=== PATIENT | female | born 1935 | race Caucasian/White ===

== ENCOUNTER 2019-08-22 09:08 | Outpatient (CLI) | payer MEDICARE, SELFPAY ==
[2019-08-22 09:53] LABS: Alanine Aminotransferase 15 U/L (4-35); Albumin Level 4.1 g/dL (3.5-5.1); Alkaline Phosphatase 52 U/L (38-126); Aspartate Amino Transferase 25 U/L (14-36); Bilirubin,Total 0.5 mg/dL (0.2-1.3); Blood Urea Nitrogen 17 mg/dL (7-17); Calcium 9.3 mg/dL (8.4-10.2); Carbon Dioxide 28 mmol/L (22-30); Chloride 102 mmol/L (98-107); Estimated Glomerular Filt Rate > 60; Glucose 96 mg/dL (65-105); Sodium 140 mmol/L (137-145)
[2019-08-22 10:12] LABS: Hemoglobin A1C 5.4 % (<5.7)
== END 2019-08-22 09:09 | disposition home or self-care (01) ==
PROVIDERS: PCP Internal Medicine; Visit Provider Internal Medicine
DX: R73.9 Hyperglycemia, unspecified (principal)
CPT/HCPCS: 36415; 80053; 83036

== ENCOUNTER 2019-08-27 11:24 | Outpatient (CLI) | payer MEDICARE, SELFPAY ==
--- NOTE | ~2019-08-27 | XR_ITS ---
EXAMINATION: XR chest 2V EXAM DATE: 08/27/2019 11:42 INDICATION: Cough. TECHNIQUE: Frontal and lateral projections of the chest obtained and reviewed. Comparison is made to prior examination from 04/05/2008. FINDINGS: Scattered lung calcifications, granulomata. The lungs are otherwise clear. There are no p leural effusions. Heart is upper limits of normal in size. There is no pneumothorax suspected. Moder ate chronic hyperinflation. There is tortuosity of the aorta. Mild to moderate thoracic spondylosis . IMPRESSION: Chronic thoracic findings as above. Reviewed, dictated and finalized at location B. RMATION DEVELOPER
== END 2019-08-27 11:25 | disposition home or self-care (01) ==
LOC: ANHIMG 11:31
PROVIDERS: PCP Internal Medicine; Visit Provider Internal Medicine
DX: R05 Cough (principal); R91.8 Other nonspecific abnormal finding of lung field
CPT/HCPCS: 71046

== ENCOUNTER 2019-09-17 08:24 | Outpatient (CLI) | payer MEDICARE, SELFPAY ==
--- NOTE | ~2019-09-17 | CT_ITS ---
EXAMINATION: CT abdomen pelvis wo/w con DATE: 09/17/2019 09:07 INDICATION: Abnormal weight loss. Splenic nodule. TECHNIQUE: Computed tomography (CT) of the abdomen and pelvis was performed without and with 100 mL O mnipaque-350 intravenous contrast is a multi phase liver mass protocol. Automated exposure control an d iterative reconstruction technique were employed. The dose-length product was 830.54 mGy-cm. COMPARISON: CT dated 09/28/2012 and 04/17/2013 FINDINGS: Small calcified right lower lobe nodule consistent with old granulomatous disease. Mosaic attenuation in the lower lungs consistent with subsegmental air trapping related to small airway disease. Heart size is normal. Atherosclerotic coronary artery calcifications. No pericardial or pleural effusion. 6 mm low-attenuation nonenhancing cyst in the right hepatic lobe. Gallbladder, bilateral adrenal gland s are normal. No significant interval change since 2012 in a 10 mm peripherally hyperenhancing mass w ith central decreased attenuation at the tail of the pancreas. Again seen are numerous hypoenhancing masses throughout the spleen and a couple small accessory splenules along the posterior margin of the spleen. There are few 8 mm or smaller bilateral renal cysts which can be seen on prior CT as well as the intervening lumbar spine MR. Rim calcified splenic artery aneurysms at the maria teresa measuring 4 mm a nd 8 mm diameters. Normal short appendix versus appendiceal stump without surrounding inflammatory ch tali to suggest acute appendicitis. A few scattered colonic diverticula without adjacent inflammatory change to suggest diverticulitis. Small bowel is normal with no obstruction. Bilateral adnexal cysts measuring 1.7 cm on the right and 3.3 cm on the left. 4.8 x 3.8 cm heterogeneous enhancing subserosa l versus pedunculated uterine fibroid along the right side of the uterine fundus. There are several a dditional calcified degenerated uterine fibroids. Bladder is normal. No free intraperitoneal gas or f luid. No pathologically enlarged abdominal or pelvic lymphadenopathy. Moderate lower thoracic and upp er lumbar spondylosis and severe lower lumbar spondylosis. IMPRESSION: 1. Innumerable hypoenhancing lesions in the spleen and accessory spleens which have been present sinc e 2012 most likely granulomatous disease such as infection or sarcoidosis. 2. No significant interval change since 2012 in a 10 mm hyperenhancing, centrally low attenuation mas s at the tail of the pancreas. Differential would include additional granulomatous disease within an additional accessory spleen within or along side the tail of the pancreas or less likely a neuroendoc rine tumor of the pancreas. 3. Fibroid uterus end couple simple appearing bilateral adnexal cysts. Reviewed, dictated and finalized at location A. ER DEPOSIT OPERATOR IMPRESSION: 1. Innumerable hypoenhancing lesions in the spleen and accessory spleens which have been present since 2012 most likely granulomatous disease such as infectio n or sarcoidosis. 2. No significant interval change since 2012 in a 10 mm hyperenhancing, central ly low attenuation mass at the tail of the pancreas. Differential would include additional granulomatous disease within an additional accessory spleen within or along side the tail of the pancreas or less likely a neuroendocrine tumor of the pancreas. 3. Fibroid uterus end couple simple appearing bilateral adnexal cysts.
== END 2019-09-17 08:25 | disposition home or self-care (01) ==
LOC: ANHIMG 08:25
PROVIDERS: PCP Internal Medicine; Visit Provider Internal Medicine
DX: R63.4 Abnormal weight loss (principal); D73.9 Disease of spleen, unspecified; D25.9 Leiomyoma of uterus, unspecified
CPT/HCPCS: 74178; Q9967

== ENCOUNTER 2020-08-18 13:39 | Outpatient (CLI) | payer MEDICARE, SELFPAY ==
[2020-08-18 15:14] LABS: Basophils Percent Auto 0.3 % (0.2-1.2); Eosinophils Absolute Auto 0.1 K/mm3 (0-0.3); Eosinophils Percent Auto 1.5 % (0-4.4); Hematocrit 44.8 % (37.0-47.0); Hemoglobin 14.4 g/dL (12.0-15.0); Immature Granulocyte Absolute 0.01 K/mm3 (0.00-0.031); Immature Granulocyte Percent A 0.1 % (0-0.5); Lymphocytes Absolute Auto 1.69 K/mm3 (0.9-3.2); Lymphocytes Percent Auto 24.6 % (18.3-44.2); Mean Corpuscular HGB Conc 32.1 g/dl (32-36); Mean Corpuscular Hemoglobin 28.6 pg (26-34); Mean Corpuscular Volume 89.1 fl (80-100); Mean Platelet Volume 9.8 fl (7.4-10.4); Monocytes Absolute Auto 0.4 K/mm3 (0.1-0.6); Monocytes Percent Auto 5.8 % (2.6-8.5); Neutrophils Absolute Auto 4.6 K/mm3 (1.3-6.7); Neutrophils Percent Auto 67.7 % (45.5-73.1); Platelet Count Result 159 k/mm3 (150-375); Red Blood Count 5.03 M/mm3 (4.2-5.4); Red Cell Distribution Width 13.2 % (11.5-14.5); White Blood Count 6.9 K/mm3 (4.5-10.0)
[2020-08-18 15:25] LABS: Alanine Aminotransferase 13 U/L (4-35); Albumin Level 4.5 g/dL (3.5-5.1); Alkaline Phosphatase 58 U/L (38-126); Anion Gap 4 mmol/L (8-16); Aspartate Amino Transferase 28 U/L (14-36); Bilirubin,Total 0.5 mg/dL (0.2-1.3); Blood Urea Nitrogen 16 mg/dL (7-17); Calcium 9.8 mg/dL (8.4-10.2); Carbon Dioxide 31 mmol/L (22-30); Chloride 106 mmol/L (98-107); Cholesterol 214 mg/dL (0-200); Estimated Glomerular Filt Rate > 60; Glucose 83 mg/dL (65-105); HDL Direct 90 mg/dL; Potassium 4.2 mmol/L (3.4-5.0); Sodium 141 mmol/L (137-145); Triglycerides 110 mg/dL (<150)
[2020-08-18 15:36] LABS: LDL Cholesterol Direct 103 mg/dL
[2020-08-18 16:31] LABS: Folic Acid > 20.0 ng/mL (2.76->20)
[2020-08-18 16:37] LABS: Free T4 Free Thyroxine 0.93 ng/mL (0.78-2.19)
== END 2020-08-18 13:40 | disposition home or self-care (01) ==
LOC: ANHLAB 13:43
PROVIDERS: PCP Internal Medicine; Visit Provider Internal Medicine
DX: R53.83 Other fatigue (principal); E03.9 Hypothyroidism, unspecified; R73.9 Hyperglycemia, unspecified; E78.00 Pure hypercholesterolemia, unspecified
CPT/HCPCS: 36415; 80053; 80061; 82607; 82746; 84439; 84443; 85025

== ENCOUNTER → 2020-10-31 01:41 | Outpatient (CLI) | payer MEDICARE, SELFPAY ==
[2020-10-31 19:39] LABS: SARS-CoV-2 RNA PCR Negative
== END ==
PROVIDERS: PCP Internal Medicine; Visit Provider Orthopaedic Surgery
DX: Z01.812 Encounter for preprocedural laboratory examination (principal); Z20.822 Contact with and (suspected) exposure to COVID-19
CPT/HCPCS: C9803; U0003; U0005

== ENCOUNTER 2020-10-31 07:56 | Outpatient (CLI) | payer MEDICARE, SELFPAY ==
--- NOTE | 2020-10-31 08:08 | ECG_ITS ---
Measurements Intervals [place] Rate: 78 P: 70 MS: 170 QRS: 23 QRSD: 89 T: 36 QT: 355 QTc: 405 Interpretive Statements SINUS RHYTHM POSSIBLE LEFT ATRIAL ENLARGEMENT CANNOT RULE OUT SEPTAL INFARCT, AGE INDETERMINATE BASELINE ARTIFACT- I, II, III, AVR, AVL, AVF, V1-V6 ABNORMAL ECG Electronically Signed On 10-31-2020 8:39:49 CDT by Juanjose Timmons D.O.
== END 2020-10-31 07:57 | disposition home or self-care (01) ==
LOC: ANHSURGERY 08:01
PROVIDERS: PCP Internal Medicine; Visit Provider Orthopaedic Surgery
DX: I10 Essential (primary) hypertension (principal); Z01.818 Encounter for other preprocedural examination; R94.31 Abnormal electrocardiogram [ECG] [EKG]
CPT/HCPCS: 93005; C9803; U0003; U0005

== ENCOUNTER 2020-11-03 01:10 | Day surgery (SDC) | payer MEDICARE, SELFPAY ==
[2020-10-23 12:16] VITALS: BMI 28.8
[2020-11-03] VITALS (10 sets, daily range): BP systolic 134–169; BP diastolic 67–83; PULSE 60–80; RESP 14–18; TEMP 36.3; O2SAT 98–100
--- NOTE | 2020-11-03 08:35 | WPDANESEPPF ---
Anes - Initial Pre Proc Eval Procedure: Operation Date: 11/03/20 10:30 Proposed Procedures p Right Knee Arthroscopic Peripatellar Debridement - Shabbir Barnes MD Date/Time: 11/03/20 08:35 Surgeon: Shabbir Barnes MD Pre Op Diagnosis: right knee peripatellar pain Patient Data Age: 85 Gender: F Height: 1.61 m Weight: 75 kg Allergies Allergy/AdvReac Type Severity Reaction Status Date / Time Penicillins Allergy Mild Rash Verified 11/03/20 08:50 Home Medications Medication Instructions Recorded Confirmed Type acetaminophen 650 mg 650 mg PO Q12H 08/27/19 11/03/20 History tablet,extended release aspirin 325 mg tablet 325 mg PO DAILY 08/27/19 11/03/20 History gabapentin 400 mg capsule 400 mg PO BID #60 cap 08/05/20 11/03/20 Rx lisinopril 10 mg tablet 10 mg PO DAILY #90 tablet 09/14/20 11/03/20 Rx levothyroxine 50 mcg PO QAM 10/23/20 11/03/20 History multivitamin 1 tablet PO DAILY 10/23/20 11/03/20 History ECG: Date of Service: 10/31/20 Procedure(s): CA 12 lead EKG Accession Number(s): [id number] cc: ~ Measurements Intervals [place] Rate: 78 P: 70 WA: 170 QRS: 23 QRSD: 89 T: 36 QT: 355 QTc: 405 Interpretive Statements SINUS RHYTHM POSSIBLE LEFT ATRIAL ENLARGEMENT CANNOT RULE OUT SEPTAL INFARCT, AGE INDETERMINATE BASELINE ARTIFACT- I, II, III, AVR, AVL, AVF, V1-V6 ABNORMAL ECG Electronically Signed On 10-31-2020 8:39:49 CDT by Juanjose Timmons D.O. 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 Family History Family History Father Family history of Parkinson's disease Patient's father is Mother Patient's mother is Sibling Patient's sister is Social History Social History Smoking status: Never smoker Second hand tobacco smoke exposure: No Alcohol intake: never Substance use: never Substance use type: does not use Living arrangements: alone Spiritual care concerns: No Anes - Eval Final PreProcedure Day of Procedure 11/03/20 08:35 Patient weight: overweight Heart: regular rate and rhythm Lungs: clear to auscultation and normal air movement Airway: Mallampati scale class II Neurological: alert and oriented Last oral intake: >/= 8 hours ASA classification: III Emergent: no Anesthetic plan: proceed Anesthesia type and monitoring: general LMA Informed Consent: The patient's anesthetic plan and its attendant risks and benefits were discussed with the patient/family/POA. Questions were solicited and answers provided to the satisfaction of the patient/family/POA.
[2020-11-03] MEDS: ACETAMINOPHEN 500 MG TABLET 1000 MG PO (09:08)
[2020-11-03] MEDS: LACTATED RINGERS 1,000 ML 30 ML IV CONT ×2 (09:15→11:36)
--- NOTE | 2020-11-03 09:44 | WPDHPUPDATE1 ---
History and Physical Update Update Date/Time: 11/03/20 09:44 History and Physical has been reviewed, including an updated exam of the patient. There are NO changes in the patient's condition. Risks, benefits, and alternatives have been discussed and questions answered. Patient agrees to proceed with procedure.
[2020-11-03] MEDS: KETOROLAC 15 MG/ML VIAL (*BKC) IV PUSH (09:50)
[2020-11-03] MEDS: ceFAZolin 2 GM/D5W 50 ML 2 GM/50 ML BAG IVPB (10:19)
--- NOTE | 2020-11-03 11:35 | PM.PROC ---
Procedure Note - Detailed Date of procedure: 11/03/20 Pre-op diagnosis: right knee peripatellar pain Post-op diagnosis: same Procedure performed: right knee arthroscopy with peripatellar debridement Description of procedure: The patient was identified and proper site identified. She was taken to the operating room and transferred to the OR table placing her supine taking care to pad the torso and extremities. After general anesthetic induction and intubation, a nonsterile tourniquet was placed high on the right thigh but was not used. The right lower extremity was positioned, prepped and draped in usual sterile fashion. 10 cc of 1% lidocaine was injected into the subcutaneous tissue in the area of the portals at start of the procedure, and an additional 10 at the end. The portals were established and the arthroscopy was carried out. pouch and gutters as well as anterior portion of the knee were essentially clear. There was quite a bit of scar overlying the patella with about 50% of it covered up, only the central portion showing. Around the periphery, particularly laterally there is also erythematous tissue. This also was debrided with shaver and ArthroCare Wand removing all the scar tissue about the patella. Hemostasis carried out with the ArthroCare Wand. The knee was flushed with a copious amount of arthroscopic fluid and equipment was removed. Portals were closed with three O nylon suture and a sterile dressing was applied. She tolerated the procedure well, was awakened, extubated and taken to recovery area in stable condition. There were no known intraoperative complications. Estimated blood loss was negligible. She received perioperative antibiotics. Anesthesia: GLMA Surgeon: Shabbir Barnes MD Estimated blood loss (mL): 15 Tourniquet time (min): 0 Drains: No Packing: No Pathology: none sent Complications: No immediate complications Condition: stable Disposition: PACU
== END 2020-11-03 13:15 | disposition home or self-care (01) ==
PROVIDERS: PCP Internal Medicine; Visit Provider Orthopaedic Surgery
PROC: (CPT 29870; principal; 2020-11-03 10:30)
DX: M25.561 Pain in right knee (principal); M89.8X6 Other specified disorders of bone, lower leg; Z79.82 Long term (current) use of aspirin; E03.9 Hypothyroidism, unspecified; I10 Essential (primary) hypertension; E78.00 Pure hypercholesterolemia, unspecified; D73.9 Disease of spleen, unspecified
CPT/HCPCS: 29999; A9270; J0690; J1100; J1885; J2405; J2704; J3010; J7120

== ENCOUNTER 2020-11-25 12:30 | Outpatient (RCR) | payer MEDICARE, SELFPAY ==
--- NOTE | 2020-11-05 11:28 | PTOPEVAL ---
PHYSICAL THERAPY EVALUATION Thank you for referring Velvet Jordan to [facility].? Velvet was evaluated for the dx of right knee scope. The patient is scheduled to be seen for therapy? 1 x/week for 2 weeks then assess again for further PT needs (less due to advanced current level). Please review, sign, date and return this plan of care LELE. I agree with and certify that the following plan of care is medically necessary. Referring Physician Date Referring Provider: Shabbir Barnes MD *PT Outpatient Evaluation Start: 11/05/20 10:24 Freq: Status: Active Protocol: Document 11/05/20 10:25 MLV (Rec: 11/05/20 11:14 [facility] [id number]) Therapy Assessment Status Assessment Status Evaluation Evaluation Information Problem Diagnosis right knee pain/scar tissue at patella Onset 11/03/20 knee scope Cause no injury Additional Evaluation Detail Pt had her right knee replaced in 2015, the left done in 2007. The patient began having trouble climbing stairs due to right knee pain and pt had knee debrided to remove scar tissue on Tuesday. Pt lives home alone and cares for her home and yard. The patient's laundry is in the basement. Pt still drives and shops. Pt currently has no knee pain. Pt wants to come a couple visits to assure full motion of knee and get exercises to do on her own. Diagnostic Tests X-Rays For This Problem Yes: scar tissue at patella Pain Assessment Timing of Pain Assessment Timing of Pain Assessment Assessment Self Report Self Report Pain Level 0 Pain Score Pain Score 0: Self Report Lower Extremity Range of Motion General Lower Extremity Range of Motion Gross Lower Extremity Range of Motion active motion left knee 0-120; Comments right knee 0-100 degrees; passive 0-105; bandage restricting bend and is allowed to remove bandage this pm. Lower Extremity Muscle Strength Testing General Lower Extremity Strength Reason Not Measured WNL/Left,WNL/Right Gross Lower Extremity Strength right hip 4/5, knee 4-/5 but submax tested due to recent surgery. Transfer Assessment Chair Transfer Assessment Chair Transfer Assistive Devices None Ambu
--- NOTE | 2020-11-25 13:11 | PTOPEVAL ---
PHYSICAL THERAPY DISCHARGE Thank you for referring Velvet Jordan to [facility]. Velvet was seen for the dx of right knee scope and has progressed- all goals met except full flexion motion. DC PT. Please review, sign, date and return this plan of care. I agree with and certify the following plan of care. Referring Physician Date Referring Provider: Shabbir Barnes MD *PT Outpatient Discharge Start: 11/05/20 10:24 Freq: Status: Active Protocol: Document 11/25/20 12:32 MLV (Rec: 11/25/20 13:08 MLV [id number]) Therapy Assessment Status Assessment Status Discharge Evaluation Information Problem Diagnosis right knee pain/scar tissue at patella Onset 11/03/20 knee scope Cause no injury Additional Evaluation Detail Patient reports she is doing well with her exercises, her walking and the area of swelling is a lot better. Patient reports having just a stiffness with knee flexion, no pain, when doing her stretching. Patient reports the knee feels as mobile as it was prior to recent surgery. Pt would prefer to continue her exercises on her own at this point. Pain Assessment Timing of Pain Assessment Timing of Pain Assessment Assessment Self Report Self Report Pain Level 0 Pain Score Pain Score 0: Self Report Lower Extremity Range of Motion General Lower Extremity Range of Motion Gross Lower Extremity Range of Motion active motion left knee 0-120; Comments right knee 0-105 degrees; passive 0-115; Lower Extremity Muscle Strength Testing General Lower Extremity Strength Reason Not Measured WFL/Left Gross Lower Extremity Strength right hip 4+/5, knee 5/5 Gait Assessment Gait Pattern Assessment Gait Pattern No Deviations/Normal Other Gait Observations Patient ambulates I w/o a device and no deviations from the right knee. Patient denies limits to gait distance tolerance and has no pain with activity. PT Clinical Summary Mrs. Jordan has completed 3 visits for the dx of right knee scope. The patient has progressed with her right knee range of motion, strength a
== END 2021-01-20 14:07 | disposition home or self-care (01) ==
LOC: ANHPT 12:30
PROVIDERS: PCP Internal Medicine; Referring Provider Orthopaedic Surgery; Visit Provider Orthopaedic Surgery
DX: Z48.89 Encounter for other specified surgical aftercare (principal)
CPT/HCPCS: 97110; 97140; 97161

== ENCOUNTER 2021-12-09 07:36 | Outpatient (CLI) | payer MEDICARE, SELFPAY ==
[2021-12-09 08:26] LABS: Basophils Percent Auto 0.6 % (0.2-1.2); Eosinophils Absolute Auto 0.1 K/mm3 (0-0.3); Eosinophils Percent Auto 2.7 % (0-4.4); Hematocrit 43.6 % (37.0-47.0); Hemoglobin 13.7 g/dL (12.0-15.0); Immature Granulocyte Absolute 0.01 K/mm3 (0.00-0.031); Immature Granulocyte Percent A 0.2 % (0-0.5); Lymphocytes Absolute Auto 1.11 K/mm3 (0.9-3.2); Lymphocytes Percent Auto 23.4 % (18.3-44.2); Mean Corpuscular HGB Conc 31.4 g/dl (32-36); Mean Corpuscular Hemoglobin 28.2 pg (26-34); Mean Corpuscular Volume 89.7 fl (80-100); Mean Platelet Volume 10.4 fl (7.4-10.4); Monocytes Absolute Auto 0.4 K/mm3 (0.1-0.6); Monocytes Percent Auto 7.4 % (2.6-8.5); Neutrophils Absolute Auto 3.1 K/mm3 (1.3-6.7); Neutrophils Percent Auto 65.7 % (45.5-73.1); Platelet Count Result 132 k/mm3 (150-375); Red Blood Count 4.86 M/mm3 (4.2-5.4); Red Cell Distribution Width 13.4 % (11.5-14.5); White Blood Count 4.7 K/mm3 (4.5-10.0)
[2021-12-09 08:47] LABS: Alanine Aminotransferase 11 U/L (6-35); Albumin Level 4.3 g/dL (3.5-5.1); Alkaline Phosphatase 51 U/L (38-126); Anion Gap 4 mmol/L (8-16); Aspartate Amino Transferase 25 U/L (14-36); Bilirubin,Total 0.7 mg/dL (0.2-1.3); Blood Urea Nitrogen 15 mg/dL (7-17); Calcium 8.9 mg/dL (8.4-10.2); Carbon Dioxide 28 mmol/L (22-30); Chloride 105 mmol/L (98-107); Cholesterol 205 mg/dL (0-200); Estimated Glomerular Filt Rate 60; Glucose 94 mg/dL (65-110); HDL Direct 71 mg/dL; Potassium 4.5 mmol/L (3.4-5.0); Sodium 137 mmol/L (137-145); Triglycerides 109 mg/dL (<150)
[2021-12-09 08:58] LABS: LDL Cholesterol Direct 85 mg/dL
[2021-12-09 09:04] LABS: Free T4 Free Thyroxine 1.18 ng/mL (0.78-2.19)
[2021-12-09 10:00] LABS: Folic Acid > 20.0 ng/mL (2.76->20)
== END 2021-12-09 07:37 | disposition home or self-care (01) ==
LOC: ANHLAB 07:41
PROVIDERS: PCP Internal Medicine; Visit Provider Internal Medicine
DX: E03.9 Hypothyroidism, unspecified (principal); E78.00 Pure hypercholesterolemia, unspecified; I10 Essential (primary) hypertension; R53.83 Other fatigue; R73.9 Hyperglycemia, unspecified; Z96.653 Presence of artificial knee joint, bilateral
CPT/HCPCS: 36415; 80053; 80061; 82607; 82746; 84439; 84443; 85025; 85055

== ENCOUNTER 2023-11-08 10:55 | Outpatient (CLI) | payer MEDICARE, SELFPAY ==
[2023-11-08 11:16] LABS: Basophils Percent Auto 0.5 % (0.2-1.2); Eosinophils Absolute Auto 0.1 K/mm3 (0-0.3); Eosinophils Percent Auto 1.5 % (0-4.4); Hematocrit 43.9 % (37.0-47.0); Hemoglobin 13.9 g/dL (12.0-15.0); Immature Granulocyte Absolute 0.02 K/mm3 (0.00-0.031); Immature Granulocyte Percent A 0.3 % (0-0.5); Lymphocytes Absolute Auto 1.26 K/mm3 (0.9-3.2); Lymphocytes Percent Auto 21.2 % (18.3-44.2); Mean Corpuscular HGB Conc 31.7 g/dl (32-36); Mean Corpuscular Hemoglobin 28.4 pg (26-34); Mean Corpuscular Volume 89.8 fl (80-100); Mean Platelet Volume 9.4 fl (7.4-10.4); Monocytes Absolute Auto 0.3 K/mm3 (0.1-0.6); Monocytes Percent Auto 4.7 % (2.6-8.5); Neutrophils Absolute Auto 4.3 K/mm3 (1.3-6.7); Neutrophils Percent Auto 71.8 % (45.5-73.1); Platelet Count Result 178 k/mm3 (150-375); Red Blood Count 4.89 M/mm3 (4.2-5.4); Red Cell Distribution Width 13.5 % (11.5-14.5); White Blood Count 5.9 K/mm3 (4.5-10.0)
[2023-11-08 11:27] LABS: Alanine Aminotransferase 15 U/L (6-35); Albumin Level 4.6 g/dL (3.5-5.1); Alkaline Phosphatase 52 U/L (38-126); Anion Gap 6 mmol/L (4-12); Aspartate Amino Transferase 31 U/L (14-36); Bilirubin,Total 0.6 mg/dL (0.2-1.3); Blood Urea Nitrogen 14 mg/dL (7-17); Calcium 9.5 mg/dL (8.4-10.2); Carbon Dioxide 28 mmol/L (22-30); Chloride 108 mmol/L (98-107); Cholesterol 222 mg/dL (0-200); Estimated Glomerular Filt Rate > 60; Glucose 119 mg/dL (65-110); HDL Direct 103 mg/dL; Potassium 4.1 mmol/L (3.4-5.0); Sodium 142 mmol/L (137-145); Triglycerides 100 mg/dL (<150)
[2023-11-08 11:38] LABS: LDL Cholesterol Direct 103 mg/dL
[2023-11-08 11:53] LABS: Free T4 Free Thyroxine 1.06 ng/mL (0.78-2.19)
[2023-11-08 20:21] LABS: Hemoglobin A1C 5.3 % (<5.7)
== END 2023-11-08 10:56 | disposition home or self-care (01) ==
LOC: ANHLAB 10:59
PROVIDERS: PCP Internal Medicine; Visit Provider Internal Medicine
DX: E03.9 Hypothyroidism, unspecified (principal); E78.00 Pure hypercholesterolemia, unspecified; I10 Essential (primary) hypertension; R53.83 Other fatigue; Z96.653 Presence of artificial knee joint, bilateral; R73.9 Hyperglycemia, unspecified
CPT/HCPCS: 36415; 80053; 80061; 83036; 84439; 84443; 85025

== ENCOUNTER 2024-12-18 10:36 | Outpatient (CLI) | payer MEDICARE, SELFPAY ==
--- NOTE | ~2024-12-18 | CT_ITS ---
Non-contrast Head CT History: Dizziness and giddiness Technique: Axial non-contrast imaging of the brain was performed. Dose reduction technique was used on this scan by utilizing automated exposure control and iterative reconstruction technique. The dose -length product (DLP) was 605.33 mGy-cm. Findings: There is no evidence of intracranial hemorrhage, mass lesion, or acute infarct. Brain par enchyma appears normal. The ventricles and subarachnoid spaces are normal in size. The calvarium ap pears normal. The visualized paranasal sinuses and mastoid air cells are clear. Impression: No significant abnormality seen. Reviewed, dictated and finalized at location . Impression: No significant abnormality seen.
--- OUTSIDE RECORDS SUMMARY | 2024-12-18 11:01 | XMS_ITS | Data Portability ---
Author Organization [facility] JENNIFERAshvin Graham Address [address] [place] [address] Assessment No assessment recorded. Plan of Treatment Reminders Order Date Submit Date Provider Last Modified By Organization Details Last Modified Time Details Appointments None recorded. Lab None recorded. Referral None recorded. Procedures None recorded. Surgeries None recorded. Imaging MAMMO, screening, bilateral 2015 016 CEDRIC Lockett (Radiology), [address] [place], [address], 6 20:24:50 bone density 2015 016 CEDRICHALLEY Lockett Scheduling, [address] [place], [address], 6 09:35:12 mammogram, screening 2014 015 CEDRICHALLEY Lockett (Radiology), [address] [place], [address], 5 16:57:49 Medication Orders None recorded. Patient TargetsNo targets recorded. Patient Instructions Encounter Date Encounter Id Patient Instructions Last Modified By Organization Details Last Modified Time 02/09/2016 [id number] mammogram: about this test mpass Not available 02/09/2016 17:55:11 To schedule mammogram and bone density. To make apt. with derm for a skin survey. mpass Not available 02/09/2016 12:36:55 Right hip replacement. Doing well. mpass Not available 02/09/2016 12:36:55 Reason for Referral None Reported. Results Created Date Observation Date Name Description Value Unit Range Abnormal Flag Note LastModifiedBy Organization Detail LastModifiedTime 03/07/20 15 03/07/2015 mammo gram, radha degroot No observ ation record ed. [address] [place], [address], 03/09/2015 20:37:05 03/08/20 16 03/08/2016 MAMMO radha, bilat eral No observ ation record ed. [address] [place], [address], 03/09/2016 09:38:27 03/11/20 16 03/08/2016 bone densi ty No observ ation record ed. [address] [place], [address], 03/11/2016 10:36:47 03/15/20 16 03/08/2016 bone densi ty No observ ation record ed. [email or web address] [address] [place], [address], 03/15/2016 17:45:23 Result Notes None recorded. Problems No Known Problems Procedures Surgical History Date Name Laterality Status Provider Name and Address Organization Details Recorded Time 6 Other completed Nemo Benavides MA [facility] 02/09/2016 11:01:30 4 Other completed Nemo Benavides MA [facility] 02/09/2016 11:02:25 Colonoscopy completed Juliann Contreras [facility] 02/05/2015 10:38:54 Anesth knee area procedure completed Juliann Contreras [facility] 02/05/2015 10:38:54 Imaging Results None recorded. Procedure Notes None recorded. Medical Equipment None Reported. Allergies Allergen ID Allergen Name Allergen Category Reaction Reaction Severity Criticality Documentation Date Start Date Code Code System Note Provider Name and Address Organization Details Recorded Time 98120 Penicilli n Not available rash Not available Not available 02/05/2015 07376 RxNorm Juliann durham [facility] 5 09:55:57 Medications Name Sig Start Date Stop Date Status Note LastModified by Organization Details LastModified Time celecoxib 200 mg capsule active Not Available Not Available N ot Available nabumetone 750 mg tablet active Not Available Not Available No t Available azithromycin 250 mg tablet active Not Available Not Availabl e Not Available tramadol 50 mg tablet active Not Available Not Available Not Available levothyroxine 50 mcg tablet active Not Available Not Availabl e Not Available hydrocodone 7.5 mg-acetaminophe n 325 mg tablet active Not Available Not Availa ble Not Available lisinopril 10 mg tablet active Not Available Not Available No t Available gabapentin 300 mg capsule Take 1 capsule 3 times a day by oral route. active Not Available Not Available No t Available fluticasone propionate 50 mcg/actuation nasal spray,suspensio n active Not Available Not Available Not Available aspirin active Not Available Not Avail able Not Available multivitamin active Not Available Not Available Not Available Vitals Date Recorded Body height Body mass index (BMI) Body weight Systolic blood pressure Diastolic blood pressure Provider Name and Address Organization Details Last Updated DateTime 02/05/2015 160.02 cm 33.3 kg/m2 21978.36 556 g 138 mm[Hg] 82 mm[Hg] Juliann Brewermons [facility] 5 10:38:54 Date Recorded Body height Body mass index (BMI) Body weight Systolic blood pressure Diastolic blood pressure Provider Name and Address Organization Details Last Updated DateTime 02/09/2016 160.02 cm 32.9 kg/m2 00076.18 082 g 122 mm[Hg] 82 mm[Hg] Nemo Benavides MA [facility] 6 11:22:01 Social History None recorded. Functional Status None recorded. Mental Status None recorded. Family History Relationship Description Onset Age of this Age Resolved Age Notes LastModified by Organization Details LastModified Time Mother Malignant tumor of unknown origin knealma Not available 2015 11:01:30 Medical History Condition Response Arthritis Y Hypertension Y Blood Clots Y Gynecological History Statement/Question Response LMP Unknown Obstetrics History GPAL:G 5 P 4 0 1 4 Type Value Full Term 4 Living 4 Ectopics 1 Total 5 Past Encounters Encounter ID Performer Location Encounter Start Date Encounter Closed Date Diagnosis/Indication Diagnosis SNOMED-CT Code Diagnosis ICD10 Code Diagnosis Note [id number] Emmy Lopez [facility] ([facility]DR[facility]) [address] [facility] [address] [place] [address] 02/05/2015 10:17:51 02/05/2015 10:51:28 Screening mammography [id number] Gynecologi c examination [id number] Emmy Lopez [facility] ([facility]DRA [address]) 2 [facility] [address] [place] [address] 02/09/2016 10:38:27 02/09/2016 15:43:30 Gynecologic examination 56649629 Z01.419 Screening mammography 24 829972 Z12.31 Postmenopausal state 764 39849 Z78.0 Health Concerns Section Related Observation LastModified by Organization Detai ls LastModified Time None Recorded Concern Status LastModified by Organization Details LastModified Time None Recorded Advance Directives Directive None Recorded Payers Encounter Date Sequence Insurance Name Policy Number Policy Mireles Covered Member ID Mireles Member ID Guarantor Name 02/05/2015 1 [place] Velvet Jordan [id number] Velvet Jordan 02/05/2015 2 [facility] [employer] - PLAN F (MEDICARE SUPPLEMENT) [employer] Velvet Jordan [id number] Velvet Jordan 02/09/2016 1 [place] Velvet Jordan [id number] Velvet Jordan 02/09/2016 2 [facility] [employer] - PLAN F (MEDICARE SUPPLEMENT) [employer] Velvet Jordan [id number] Velvet Jordan Notes Date Note Type Note Provider Name and Address Organization Details Recorded Time 02/09/2016 text/html 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 Post-MenopausalRep orted bypatient.Menopaus al Symptoms:no menopausal symptoms; normal vaginal lubrication Vaginal Bleeding:history of menopause having occurred; no history of post menopausal bleeding Urinary Symptoms:no hematuria; no incontinence; no nocturia; no urinary frequency Vulva:no genital lesion; no vulvar atrophy Vagina:normal vaginal discharge; no vaginal atrophy Breast:no breast lump; no nipple discharge; no breast pain Sexual Complaints:no sexual complaints;sexual activity denied Psychological Symptoms:no depression; no anxiety Preventive Measures:encourage regular mammograms starting age 40; encourage self breast examination; encourage regular exercise; encourage no tobacco use; needs to schedule mammogram; history of recent colonoscopy; needs to schedule bone density ANYI Mccord Attn: Accounting[address] [place], [address], [facility] 02/09/2016 17:56:10 OBGyn Episode No OBEpisode recorded.
== END 2024-12-18 10:37 | disposition home or self-care (01) ==
PROVIDERS: PCP Internal Medicine; Visit Provider Internal Medicine
DX: R42 Dizziness and giddiness (principal)
CPT/HCPCS: 70450

== ENCOUNTER 2025-01-05 08:44 | Outpatient (CLI) | payer MEDICARE, SELFPAY ==
[2025-01-05 09:17] LABS: Basophils Percent Auto 0.7 % (0.2-1.2); Eosinophils Absolute Auto 0.1 K/mm3 (0-0.3); Eosinophils Percent Auto 1.8 % (0-4.4); Hematocrit 44.8 % (37.0-47.0); Hemoglobin 14.2 g/dL (12.0-15.0); Immature Granulocyte Absolute 0.02 K/mm3 (0.00-0.031); Immature Granulocyte Percent A 0.4 % (0-0.5); Lymphocytes Absolute Auto 1.01 K/mm3 (0.9-3.2); Lymphocytes Percent Auto 17.8 % (18.3-44.2); Mean Corpuscular HGB Conc 31.7 g/dl (32-36); Mean Corpuscular Hemoglobin 27.6 pg (26-34); Mean Corpuscular Volume 87.2 fl (80-100); Mean Platelet Volume 10.1 fl (7.4-10.4); Monocytes Absolute Auto 0.3 K/mm3 (0.1-0.6); Monocytes Percent Auto 5.5 % (2.6-8.5); Neutrophils Absolute Auto 4.2 K/mm3 (1.3-6.7); Neutrophils Percent Auto 73.8 % (45.5-73.1); Platelet Count Result 169 k/mm3 (150-375); Red Blood Count 5.14 M/mm3 (4.2-5.4); Red Cell Distribution Width 13.5 % (11.5-14.5); White Blood Count 5.7 K/mm3 (4.5-10.0)
[2025-01-05 11:02] LABS: Free T4 Free Thyroxine 1.29 ng/dL (0.78-2.19)
[2025-01-05 11:08] LABS: Alanine Aminotransferase 11 U/L (6-35); Alkaline Phosphatase 50 U/L (38-126); Anion Gap 8 mmol/L (4-12); Aspartate Amino Transferase 27 U/L (14-36); Bilirubin,Total 0.9 mg/dL (0.2-1.3); Blood Urea Nitrogen 12 mg/dL (7-17); Calcium 9.3 mg/dL (8.4-10.2); Carbon Dioxide 25 mmol/L (22-30); Chloride 106 mmol/L (98-107); Cholesterol 195 mg/dL (0-200); Estimated Glomerular Filt Rate 60; Glucose 94 mg/dL (65-110); HDL Direct 80 mg/dL; Potassium 4.3 mmol/L (3.4-5.0); Sodium 139 mmol/L (137-145); Total Protein 6.7 g/dL (6.3-8.2); Triglycerides 70 mg/dL (<150)
[2025-01-05 11:19] LABS: LDL Cholesterol Direct 83 mg/dL
[2025-01-05 13:39] LABS: Hemoglobin A1C 5.5 % (<5.7)
== END 2025-01-05 08:45 | disposition home or self-care (01) ==
PROVIDERS: PCP Internal Medicine; Visit Provider Internal Medicine
DX: E03.9 Hypothyroidism, unspecified (principal); R73.9 Hyperglycemia, unspecified; E78.5 Hyperlipidemia, unspecified; I10 Essential (primary) hypertension
CPT/HCPCS: 36415; 80053; 80061; 83036; 84439; 84443; 85025